=== PATIENT | female | born 1975 | race Caucasian/White ===

== ENCOUNTER 2019-08-12 10:03 | Emergency (ER) | payer MEDICAID ==
[~2019-08-12] VITALS: Ht 165.1 cm; Wt 79.4 kg
[2019-08-12] MEDS ORDERED: ONDANSETRON ODT 4 MG ONE (10:08)
[2019-08-12] MEDS ORDERED: HYDROmorphone 2 MG/ML, 1ML ONE (10:08)
[2019-08-12] MEDS ORDERED: SODIUM CHLORIDE FLUSH 10ML SYR IVF ONE (10:30)
[2019-08-12 10:48] LABS: BASOPHILS # (AUTO) 0.03 x10^3/uL (0-0.1); BASOPHILS % (AUTO) 0 % (0-1); EOSINOPHILS # (AUTO) 0.13 x10^3/uL (0-0.4); EOSINOPHILS % (AUTO) 2 % (1-7); LYMPHOCYTES # (AUTO) 2.17 x10^3/uL (1-3.4); LYMPHOCYTES % (AUTO) 31 % (22-44); MD NO; MEAN CORPUSCULAR HEMOGLOBIN 27.9 pg (27.0-34.8); MEAN CORPUSCULAR HGB CONC 32.9 g/dL (32.4-35.8); MEAN CORPUSCULAR VOLUME 84.8 fL (80-100); MEAN PLATELET VOLUME 8.6 fL (7.4-10.4); MONOCYTES # (AUTO) 0.34 x10^3/uL (0.2-0.8); MONOCYTES % (AUTO) 5 % (2-9); NEUTROPHILS # (AUTO) 4.27 x10^3/uL (1.8-6.8); NEUTROPHILS % (AUTO) 61 % (42-75); PLATELET COUNT 282 x10^3/uL (130-400); RED BLOOD COUNT 4.87 x10^6/uL (3.82-5.3)
[2019-08-12 10:58] LABS: ALBUMIN 3.6 g/dL (3.4-5.0); ANION GAP 4 mmol/L (5-15); CALCIUM 8.3 mg/dL (8.5-10.1); CHLORIDE 110 mmol/L (98-107)
[2019-08-12 11:03] LABS: ALANINE AMINOTRANSFERASE 16 U/L (12-78); ALKALINE PHOSPHATASE 91 U/L (45-117); BILIRUBIN,TOTAL 0.4 mg/dL (0.2-1.0); CREATININE 0.94 mg/dL (0.55-1.02); TOTAL PROTEIN 7.1 g/dL (6.4-8.2)
[2019-08-12 11:16] LABS: MICROSCOPIC NOT IND
[2019-08-12 11:23] LABS: CULTURE INDICATED? NO
--- NOTE | 2019-08-12 12:03 | NUR ---
RECEIVED REPORT FROM ASHLEY FREDERICK. ASSUMING CARE AT THIS TIME. IV PLACED FOR CT
--- NOTE | 2019-08-12 12:58 | NUR ---
PT IV PATENT BUT POSITIONAL. CT BROUGHT PT BACK FOR NEW ONE. NEW IV PLACED CT NOTIFIED.
--- NOTE | 2019-08-12 13:00 | NUR ---
task RN note: 20 g PIV placed to right AC, flushes with blood return. primary RN notified. CT paged and notified that pt is ready for CT scan. pt a&o, resps even and unlabored, tolerated well. bp and spo2 monitors in place, call light in reach.
--- NOTE | 2019-08-12 13:37 | NUR ---
PT TAKEN TO CT
[2019-08-12 14:07] VITALS: BP 137/85
--- NOTE | 2019-08-12 14:08 | NUR ---
ALL RESULTS ARE BACK AT THIS TIME. CHART UP FOR RECHECK.
--- NOTE | 2019-08-12 14:48 | NUR ---
Patient/Caregiver given discharge instructions and they have confirmed that they understand the instructions. Patient ambulatory with steady gait.
== END 2019-08-12 14:50 | disposition home or self-care (01) ==
LOC: ED 10:44
DX: N83.291 Other ovarian cyst, right side (principal); R10.31 Right lower quadrant pain; Z90.49 Acquired absence of other specified parts of digestive tract
CPT/HCPCS: 36415; 74177; 80053; 81003; 83690; 84703; 85025; 99284